=== PATIENT | male | born 1970 | race Caucasian/White ===

== ENCOUNTER → 2024-09-19 | Outpatient (CLI) | payer OTHER, SELFPAY ==
--- NOTE | 2024-09-19 11:50 | EKG12_ITS ---
Test Reason : PRE OP Blood Pressure : */* mmHG Vent. Rate : 59 BPM Atrial Rate : 59 BPM P-R Int : 142 ms QRS Dur : 84 ms QT Int : 394 ms P-R-T Axes : 12 19 33 degrees QTcB Int : 390 ms Sinus bradycardia Otherwise normal ECG Confirmed by VIET MAY, ASCENCION ([id number]), field map editor SHON SALGADO ([id number]) on 09/19/2024 1:32:42 PM Referred By: Marcio Reed Confirmed By: ASCENCION LLANOS MD
[2024-09-19 12:44] LABS: Hematocrit 45.6 % (40-54); Hemoglobin 15.3 g/dL (13.0-16.5); Mean Corp Hgb Conc 33.6 g/dL (32-36); Mean Corpuscular Hgb 28.9 pg (27.0-32.0); Platelet Count 261 K/mm3 (150-450); RBC Distribution Width CV 13.2 % (11.6-14.6); RBC Distribution Width SD 41.3 fl (35.1-43.9); White Blood Count 7.7 K/mm3 (4.4-11.0)
[2024-09-19 13:02] LABS: Anion Gap 5 (5-15); BUN 14 mg/dL (7-18); BUN/Creat Ratio 17.9 RATIO (10-20); Calcium,Total 9.5 mg/dL (8.5-10.1); Chloride 104 mmol/L (98-107); Creatinine, Serum 0.78 mg/dL (0.70-1.30); EST Glomerular Filtration Rate 110 mL/min (>60); Est Glom Filt Rate - Afr Amer 133 mL/min (>60); Glucose 91 mg/dL (74-106); Potassium 3.8 mmol/L (3.5-5.1); Sodium Level 137 mmol/L (136-145)
== END | disposition home or self-care (01) ==
PROVIDERS: Referring Provider Otolaryngology; Visit Provider Otolaryngology
DX: Z01.812 Encounter for preprocedural laboratory examination (principal); Z01.810 Encounter for preprocedural cardiovascular examination
CPT/HCPCS: 36415; 80048; 85027; 93005